=== PATIENT | female | born 1980 | race Caucasian/White ===

== ENCOUNTER 2024-06-15 18:44 | Emergency (ER) | payer OTHER ==
[~2024-06-15] VITALS: Ht 167.6 cm; Wt 90.8 kg
[~2024-06-15 18:44] MED LIST: ADVIL200 M1 PO; EXCEDRIN MIGRA1 EAC2 PO; OMEPRAZOLE20 MG PO; ORTHO TRI-CYCL1 EACH PO; OVCON-351 EACH PO; PEPCID20 MG PO
[2024-06-15] MEDS ORDERED: ACETAMINOPHEN 500 MG TAB PO ONE (22:45)
[2024-06-15] MEDS ORDERED: HYDROCODONE BIT/ACETAMINOPHEN 5/325 MG 1 TAB HOME.PACK PO ONE (23:00)
[2024-06-15] MEDS ORDERED: ONDANSETRON 4 MG HOME.PACK SL ONE (23:00)
[2024-06-15] MEDS ORDERED: HYDROCODON-ACE1 EA10 PO ×2 (23:01→23:26)
[2024-06-15] MEDS ORDERED: ONDANSETRON ODT4 MG PO ×2 (23:01→23:26)
[2024-06-15 23:29] VITALS: BP 135/76
== END 2024-06-15 23:39 | disposition home or self-care (01) ==
LOC: ED 18:44
DX: S00.03XA Contusion of scalp, initial encounter (principal); S76.192A Other specified injury of left quadriceps muscle, fascia and tendon, initial encounter; Z88.6 Allergy status to analgesic agent; Z88.5 Allergy status to narcotic agent; Z88.8 Allergy status to other drugs, medicaments and biological substances; Z79.82 Long term (current) use of aspirin; W55.12XA Struck by horse, initial encounter
CPT/HCPCS: 70450; 70486; 72125; 73560; 99284-25; A9270

== ENCOUNTER 2024-06-22 09:57 | Day surgery (SDC) | payer OTHER ==
[~2024-06-22] VITALS: Ht 167.6 cm; Wt 88.6 kg
[~2024-06-22 09:57] MED LIST changes: +CEFAZOLIN SODIUM 2 GM/20 ML SYR IV SCH; +HYDROCODON-ACE1 EA10 PO; +IBLOOD GLUCOSE TEST STRIP 1 EA TEST VI PRN; +LACTATED RINGER'S 1,000 ML IV SCH; +LIDOCAINE HCL 1% 5 ML SDV INJ ONE; +ONDANSETRON ODT4 MG PO; +TRANEXAMIC ACID 2,000 MG in SODIUM CHLORIDE 0.9% 100 ML IV SCH
[2024-06-22 10:15] VITALS: BP 142/77
[2024-06-22] MEDS ORDERED: MIDAZOLAM HCL 2 MG/2 ML VIAL ONE (10:51)
[2024-06-22] MEDS ORDERED: LIDOCAINE HCL 2% 20 MG/ML VIAL INJ ONE (10:51)
[2024-06-22] MEDS ORDERED: DEXAMETHASONE SOD PHOS 4 MG/ML VIAL ONE (10:51)
[2024-06-22] MEDS ORDERED: Ropivacaine HCl 0.5% 30 ML VIAL ONE (10:51)
[2024-06-22] MEDS ORDERED: fentaNYL citrate 100 MCG/2 ML VIAL ONE (10:51)
[2024-06-22] MEDS ORDERED: HYDROCODONE/ACETA 5/325 TAB PO PRN (12:00)
[2024-06-22] MEDS ORDERED: propofoL 200 MG/20 ML VIAL ONE ×2 (12:07→13:00)
[2024-06-22] MEDS ORDERED: ondansetron HCL 4 MG/2 ML VIAL ONE (12:08)
[2024-06-22] MEDS ORDERED: NALOXONE HCL 0.4 MG SYR IV PRN (13:00)
[2024-06-22] MEDS ORDERED: PROCHLORPERAZINE EDISYLATE 10 MG/2 ML VIAL IV PRN (13:00)
[2024-06-22] MEDS ORDERED: IBLOOD GLUCOSE TEST STRIP 1 EA TEST VI PRN (13:00)
[2024-06-22] MEDS ORDERED: droPERidol 5 MG/2 ML VIAL IV PRN (13:00)
[2024-06-22] MEDS ORDERED: ondansetron HCL 4 MG/2 ML VIAL IV PRN (13:00)
[2024-06-22] MEDS ORDERED: fentaNYL citrate 50 MCG/ML SDV IV PRN (13:00)
[2024-06-22] MEDS ORDERED: HYDROmorphone HCL 1 MG/ML SYR IV PRN (13:00)
[2024-06-22] MEDS ORDERED: LACTATED RINGER'S 1,000 ML IV ONE (13:02)
[2024-06-22] MEDS ORDERED: ACETAMINOPHEN 1,000 MG/100 ML VIAL ONE (13:26)
[2024-06-22] MEDS ORDERED: HYDROCODON-ACE1 EA10 PO (13:46)
[2024-06-22] MEDS ORDERED: CELECOXIB200 MG PO (13:46)
--- NOTE | 2024-06-22 13:52 | NUR ---
06/22/24 1352 [address] 1335: PT ARRIVED TO PACU VIA STRETCHER. PT ARRIVED WITH ORAL AIRWAY IN PLACE ON 8 L VIA NON REBREATHER. 1338: PTS ORAL AIRWAY REMOVED AND TITRATED TO RA AT THIS TIME.
--- NOTE | 2024-06-22 14:10 | NUR ---
PT ARRIVES TO DS FROM PACU VIA STRETCHER. PT REPORTS NO PAIN OR NAUSEA AT THIS TIME. SPINAL IS AT HIP LEVEL. PT REPORTS ONLY NUMBNESS AT THIS TIME. BLE PINK/WARM/DRY. PT IS ON RA W/O2 >90% AT THIS TIME, RESPIRATIONS ARE EVEN AND UNLABORED. PT PROVIDED CRACKERS/JELLO/PUDDING AND TOLERATING SIPS OF ICE WATER WITHOUT DIFFICULTY. DRESSING C/D/I, NO SIGNS OF BLEEDING AT THIS TIME. REPORT RECIEVED FROM JORDON ABEL. CALL LIGHT WITHIN REACH, SON AT BEDSIDE, WARM BLANKETS PROVIDED.
[2024-06-22 14:12] VITALS: BP 113/61
[2024-06-22 15:08] VITALS: BP 124/60
--- NOTE | 2024-06-22 15:16 | NUR ---
IN PT ROOM FOR ASSESSMENT AND VS. NO ACUTE CHANGES FROM PREVIOUS ASSESSMENT. LUNCH ORDER PLACED. FAMILY REMAINS AT BEDSIDE. CALL LIGHT WITHIN REACH.
--- NOTE | 2024-06-22 15:30 | NUR ---
RICHARDSON RN IN PT ROOM AT THIS TIME TO ASSIST PT W/URINE VOID. PT VOIDS 250 ML OF CLEAR/YELLOW URINE INTO BED WHITLEY D/T SPINAL NOT RESOLVED AT THIS TIME. CALL LIGHT WITHIN REACH.
--- NOTE | 2024-06-22 15:45 | NUR ---
IN PT ROOM FOR STAND/PIVOT TO BEDSIDE COMMODE W/FWW ASSIST. PT URINE VOID IN BEDSIDE COMMODE. PT BACK TO BED AND REPORTS PAIN 3/10 AT THIS TIME. NO ACUTE CHANGES FROM PREVIOUS ASSESSMENT. SON AT BEDSIDE. CALL LIGHT WITHIN REACH.
[2024-06-22 15:58] VITALS: BP 123/77
--- NOTE | 2024-06-22 16:10 | NUR ---
RICHARDSON RN IN PT ROOM AT THIS TIME FOR ADDITIONAL USE OF BEDSIDE COMMODE W/FWW ASSIST. PT VOIDS CLEAR/YELLOW URINE. RICHARDSON RN ASSISTS PT WITH GETTING DRESSED AT THIS TIME.
--- NOTE | 2024-06-22 16:25 | NUR ---
DC EDUCATION PROVIDED TO PT AT THIS TIME. PT STATES VERBAL UNDERSTANDING AND NO FURTHER QUESTIONS AT THIS TIME. PT OFF OF UNIT VIA WC BY RICHARDSON ABEL TO PASSENGER SIDE OF SON'S VEHICLE. ALL BELONGINGS IN PT POSSESSION W/CRYO CUFF PER ORDER. ICE WATER IN PT HAND. PT STATES NO FURTHER QUESTIONS OR NEEDS AT THIS TIME.
--- NOTE | 2024-06-22 16:40 | NUR ---
PT CALLED D/T DISCHARGE EDUCATION LEFT IN WC. PT STATES MOTHER JEN AND SON WILL COME TO [employer] DC EDUCATION FROM [employer]. [employer] UPDATED AND DC EDUCATION PROVIDED. PT STATES NO FURTHER NEEDS OR QUESTIONS AT THIS TIME.
[2024-06-22] MEDS ORDERED: CELECOXIB 200 MG CAP PO SCH (17:00)
--- NOTE | 2024-06-25 07:14 | OR ---
[facility] [address], [place] [address] Signed DATE OF OPERATION: 06/22/2024 SURGEON: Bruno Valencia MD PREOPERATIVE DIAGNOSIS: Left patellar tendon rupture. POSTOPERATIVE DIAGNOSIS: Left patellar tendon rupture. PROCEDURE PERFORMED: Repair patellar tendon, left. BOTTLE CASER: Alem Sharp PA-C. Alem was present and critical for all procedures. ANESTHESIA: Spinal. BLOOD LOSS: TOURNIQUET TIME: 56 minutes. BRIEF HISTORY: Ajit is a 44-year-old female, who suffered a ground level fall and felt a large pop in her knee. She was unable to walk or extend her knee after this. MRI was consistent with an avulsion of the patellar tendon from the patella. Risks, benefits, and alternatives of surgery were discussed with her and she elected to proceed. DESCRIPTION OF PROCEDURE: Once consent was obtained, she was taken to the operating room. After adequate anesthesia, she was placed on the operating room table. A bump was placed and a well-padded proximal thigh tourniquet was placed. The leg was then prepped and draped in a standard sterile fashion. The leg was exsanguinated using Esmarch bandage and tourniquet inflated to 250 mmHg. Her prior incision from her ACL reconstruction was incised longitudinally, carried through the skin and subcutaneous tissue and flaps were developed medially and laterally. There was a large amount of clot and early scar tissue in the prepatellar bursa and in the rupture area. We were able to dissect the Electronically Signed By: BRUNO VALENCIA MD 06/25/24 0714 PATIENT NAME: AJIT VELEZ OPERATIVE REPORT DATE OF : 84 REPORT #: [id number] PHYSICIAN: BRUNO VALENCIA MD PCP: BLANCA BUENROSTRO REPORT IS CONFIDENTIAL AND NOT TO BE RELEASED WITHOUT AUTHORIZATION [facility] [address], [place] [address] Signed tendon stumps out. There was a small stump on the medial aspect of the patella, the remainder was torn off. The tendon ends were cleaned and freshened. The inferior surface of the patella was then cleared of debris down to a bleeding bony bed. Arthrex FiberTape was then placed in a Krackow configuration up and down the medial and lateral aspects and up the medial side. Such that two tails were in the middle, one on each side medial and laterally. Three drill holes were placed in the patella. The two center sutures were passed through the center hole. The two outside sutures were passed through each hole, respectively. The patella was quite tight and in an altered position. We loosened it up from the surrounding soft tissue and mobilized it distally. We were then able to easily pull the patella down to the tendon stump. The two sutures were then tied over the top of the patella proximally. This docked the patellar tendon remnants nicely into the base of the patella. The suture ends from both the medial and lateral side were then tied together. Another FiberTape was then taken from the medial side of the patellar tendon around the patella in a cerclage fashion and then back down the lateral side and tied distally. We were able to take her from 0-90 degrees with no tension or movement of the tendon repair. The entire wound was then copiously irrigated with normal saline, closed with 0 Stratafix and prashant. The wound was then dressed with an Acticoat-7 dressing, ABD, and Tanmay wrap. She tolerated the procedure well. All sponge, needle, and instrument counts correct. Bruno Valencia MD BA/MODL /[id number] Copies: ~ Electronically Signed By: BRUNO VALENCIA MD 06/25/24 0714 PATIENT NAME: AJIT VELEZ OPERATIVE REPORT DATE OF : 84 REPORT #: [id number] PHYSICIAN: BRUNO VALENCIA MD PCP: BLANCA BUENROSTRO REPORT IS CONFIDENTIAL AND NOT TO BE RELEASED WITHOUT AUTHORIZATION
== END 2024-06-22 16:33 | disposition home or self-care (01) ==
LOC: DS 09:57
PROVIDERS: ATTEND Specialist
PROC: 0LQR0ZZ Repair Left Knee Tendon, Open Approach (ICD-10-PCS; principal; 2024-06-22 12:45)
DX: S86.812A Strain of other muscle(s) and tendon(s) at lower leg level, left leg, initial encounter (principal); W18.30XA Fall on same level, unspecified, initial encounter; Z88.5 Allergy status to narcotic agent; Z79.899 Other long term (current) drug therapy
CPT/HCPCS: 01320; 64447; 84703; J0131; J0690; J1100; J2250; J2405; J2704; J2795; J3010; J7121